=== PATIENT | male | born 1995 | race Caucasian/White ===

== ENCOUNTER 2018-10-08 15:52 | Emergency (ER) | payer BC, SELFPAY ==
[2018-10-08 15:54] VITALS: BP 126/76; PULSE 76; RESP 18; TEMP 36.4; O2SAT 99; BMI 22.9
--- NOTE | 2018-10-08 16:02 | ED.ALLEREA ---
HPI - Allergic Reaction General Chief complaint: Allergic Reaction Stated complaint: Allergic Reaction Time Seen by Provider: 10/08/18 16:02 Source: patient Mode of arrival: EMS Limitations: no limitations History of Present Illness HPI narrative: Patient has a history of a walnut allergy. He had a devices hand crafted from [place] wood. Onset of symptoms were about 1 hour ago. He reported tingling in his hands and called EMS. He complains of no airway tightness, no dyspnea, no hives. He does have slight erythema to his hands. He has history of anxiety. At this point he is feeling anxious. His prior walnut allergy was a food allergy. He has no history of topical exposure creating a allergic reaction. He has no recent illness. Other than anxious, he feels like he is breathing well at this point. He has no associated chest pain or GI symptoms. Related Data Allergies Allergy/AdvReac Type Severity Reaction Status Date / Time avocado Allergy Verified 10/08/18 15:57 hazelnut Allergy Verified 10/08/18 15:57 pecan nut Allergy Verified 10/08/18 15:57 walnut Allergy Verified 10/08/18 15:57 Review of Systems Constitutional Reports system reviewed and no additional complaints, except as docu and Denies headache(s) Eyes Denies itchy eyes ENT Ears, Nose, Mouth, and Throat: Denies dizziness, Denies headache(s), Denies mouth lesions and Denies mouth pain Cardiovascular Denies chest pain, Denies diaphoresis, Denies syncope, Denies rapid heart rate and Denies dyspnea Respiratory Denies cough, Denies dyspnea and Denies wheezing Gastrointestinal Gastrointestinal: Denies abdominal pain, Reports change in bowel habits, Denies nausea and Denies vomiting Integumentary/Breasts Reports erythema (both hands) and Reports rash Neurologic Denies confusion, Denies dizziness, Denies syncope and Denies headache(s) Psychiatric Denies confusion Allergic/Immunologic Denies itchy eyes and Denies wheezing PFSH Medical History Anxiety (Acute) No significant past surgical history (Acute) Social History Smoking Status: Former smoker Social History Smoking Status: Former smoker Exam Initial Vital Signs Initial Vital Signs: Vital Signs Temperature 97.6 F 10/08/18 15:54 Pulse Rate 76 10/08/18 15:54 Respiratory Rate 18 10/08/18 15:54 Blood Pressure 126/76 10/08/18 15:54 Pulse Oximetry 99 10/08/18 15:54 Const General: cooperative, well developed and anxious Nutritional Appearance: well nourished Orientation: alert, awake, oriented x3 and not confused [facility] Mouth: oral mucosae normal, lip normal, tongue normal and oropharynx normal Eyes Conjunctivae: conjunctivae normal Resp Effort & Inspection: normal respiratory effort, able to speak in complete sentences, no respiratory distress and no use of accessory muscles Auscultation: clear to auscultation bilaterally, no rales, no rhonchi and no wheezes Cardio Rate: regular rate Rhythm: regular rhythm Heart Sounds: S1 normal, S2 normal, no click, no gallops, no murmurs and no rubs Pulses: normal peripheral pulses GI Palpation: soft and no hepatosplenomegaly Auscultation: normal bowel sounds Skin Other: Slight erythema on his chest and back. Slight erythema on the palms of both hands. Course Course Narrative: Clinical findings of allergic reaction or mild. The patient will be treated with Benadryl. He has no airway or cardiovascular symptoms. Orders Ordered: Discontinued Medications Diphenhydramine HCl (Benadryl) 50 mg IV NOW ONE Stop: 10/08/18 16:10 Last Admin: 10/08/18 16:19 Dose: 50 mg Vital Signs - 8 hr 10/08/18 15:54 10/08/18 17:39 Temperature 97.6 F Pulse Rate 76 71 Respiratory Rate 18 20 Blood Pressure 126/76 128/70 Pulse Oximetry 99 100 Discharge Plan Departure Patient Disposition: Home Clinical Impression: Allergic reaction Qualifiers: Encounter type: initial encounter Qualified Code(s): T78.40XA - Allergy, unspecified, initial encounter Discharge Date/Time: 10/08/18 17:39 Interventions: ED Discharge Assessment Last Done: 10/08/18 17:39 Instructions: DI for General Allergic Reactions Activity Restrictions/Additional Instructions: Benadryl 1 tablet every 4 hours as needed for rash or itching. Return here if you developed airway discomfort.
[2018-10-08] MEDS: diphenhydrAMINE 50 MG/ML VIAL IV (16:19)
[2018-10-08 17:39] VITALS: BP 128/70; PULSE 71; RESP 20; O2SAT 100
== END 2018-10-08 17:39 | disposition home or self-care (01) ==
PROVIDERS: Emergency Provider Emergency Medicine
DX: T78.40XA Allergy, unspecified, initial encounter (principal)
CPT/HCPCS: 96374; 99282; 99284; J1200